=== PATIENT | male | born 1960 | race African-American/Black ===

== ENCOUNTER → 2016-11-05 | Outpatient (CLI) | payer OTHER ==
[2016-11-06 10:55] LABS: PROSTATE SPECIFIC ANTIGEN 0.5 ng/mL (0.0-4.0); PSA FREE 0.04 ng/mL
== END ==
LOC: OD 08:17
PROVIDERS: ATTEND Urology
DX: C61 Malignant neoplasm of prostate (principal)
CPT/HCPCS: 36415; 84154

== ENCOUNTER → 2017-03-04 | Outpatient (CLI) | payer OTHER | LOC: OD 16:09 | PROVIDERS: ATTEND Radiology Radiation Oncology | DX: C61 Malignant neoplasm of prostate (principal) | CPT/HCPCS: 36415; 84153 ==

== ENCOUNTER → 2017-06-04 | Outpatient (CLI) | payer OTHER | LOC: OD 13:48 | PROVIDERS: ATTEND Radiology Radiation Oncology | DX: C61 Malignant neoplasm of prostate (principal) | CPT/HCPCS: 36415; 84153 ==

== ENCOUNTER → 2017-09-08 | Outpatient (CLI) | payer OTHER | LOC: OD 14:22 | PROVIDERS: ATTEND Radiology Radiation Oncology | DX: C61 Malignant neoplasm of prostate (principal) | CPT/HCPCS: 36415; 84153 ==

== ENCOUNTER → 2017-12-09 | Outpatient (CLI) | payer OTHER | LOC: OD 16:20 | PROVIDERS: ATTEND Radiology Radiation Oncology | DX: C61 Malignant neoplasm of prostate (principal) | CPT/HCPCS: 36415; 84153 ==